=== PATIENT | female | born 1935 | race Caucasian/White ===

== ENCOUNTER 2017-09-26 14:10 | Inpatient (IN) | payer OTHER ==
[~2017-09-26] VITALS: Ht 170.2 cm; Wt 106.0 kg
[~2017-09-26 14:10] MED LIST: ACCUPRIL20 MG PO; ADULT LOW DOSE81 M1 PO; ALLOPURINOL100 MG PO; ALLOPURINOL300 MG PO; AMARYL2 MG PO; AMARYL4 MG PO; ASACOL400 MG PO; ASPIR 8181 M1 PO; ASPIR-LOW81 MG PO; ATIVAN0.5 MG PO; ATORVASTATIN CA80 MG PO; B COMPLEX1 EAC2 PO; B-COMPLEX-VITA1 EACH PO; BACTRIM,SEPT1 TABLET PO; BYSTOLIC10 MG PO; BYSTOLIC20 MG PO; CATAPRES0.2 MG PO; CELEBREX; CELEBREX100 MG PO; CHLORZOXAZONE500 MG PO; CIPROFLOXACIN500 M1 PO; CITRUCEL500 MG PO; CLONIDINE HCL0.2 MG PO; COLCHICINE0.6 M1 PO; COLCRYS0.6 MG NG; COLCRYS0.6 MG PO; CORMAX50 M1 TP; COUMADIN2.5 MG PO; CYCLOBENZAPRINE10 MG PO; EFFEXOR75 MG PO; FISH OIL 1,2001 EAC1 PO; FLUCONAZOLE100 M2 PO; FUROSEMIDE20 MG NG; FUROSEMIDE40 MG PO; JANUVIA100 MG PO; LANTUS 10100 UNITS/ SC; LANTUS 3 M100 UNITS1 SC; LASIX20 MG PO; LASIX40 MG PO; LOSARTAN POTASS50 MG G-TUBE; LYRICA50 MG PO; Lasix PO; NEXIUM40 MG PO; NIFEDICAL XL30 MG PO; NIFEDIPINE ER30 MG PO; NORVASC5 MG PO; NOVOLOG PE100 UNITS/ SC; PERCOCET 5/31 TABLET PO; PRILOSEC OTC20 MG PO; PRILOSEC20 MG PO; PRILOSEC20.6 MG PO; PROBIOTIC1 EAC2 PO; QUINAPRIL HCL20 MG PO; RESTASIS 01 DROP/0.4 BOTH EYES; RESTORIL30 MG PO; SIMVASTATIN80 M1 PO; SULFASALAZINE500 MG PO; TAGAMET400 MG PO; TEKTURNA300 MG PO; TEMAZEPAM30 MG PO; TRAMADOL HCL50 MG PO; ULTRAM ER 100100 MG PO; VENLAFAXINE HCL75 M3 PO; VESICARE5 MG PO; VITAMIN D-32000 UNIT PO; VITAMIN D31000 UNIT PO; VITAMIN D32000 UNI1 PO; ZESTRIL20 MG PO; ZOCOR80 MG PO; ZYLOPRIM150 MG PO; ZYLOPRIM300 MG PO; Zyloprim PO
[2017-09-26 15:14] LABS: BASOPHIL (%) 0.5 % (0-1); EOSINOPHIL (%) 2.1 % (0-5); EOSINOPHIL COUNT 0.2 K/uL (0-0.3); HEMATOCRIT 36.5 % (36.0-46.0); HEMOGLOBIN 11.8 G/DL (11.9-15.5); IMMATURE GRANULOCYTE (%) 0.4 % (0.0-0.7); LYMPHOCYTE (%) 31.5 % (15-42); LYMPHOCYTE COUNT 2.4 K/uL (1.0-2.8); MCH 31.5 PG (29.0-34.0); MCHC 32.3 G/DL (30.0-36.0); MCV 97.3 FL (83-99); MONOCYTE (%) 13.5 % (3-12); NEUTROPHIL COUNT 3.9 K/uL (1.8-6.4); PLATELET COUNT 299 K/uL (156-360); RBC DIS.WIDTH-SD 53.5 % (39-53); RED BLOOD COUNT 3.75 M/uL (3.80-5.20); WHITE BLOOD COUNT 7.5 K/uL (4.1-10.2)
[2017-09-26 15:24] LABS: CHLORIDE 105 mEq/L (99-109); POTASSIUM 4.3 mEq/L (3.7-5.4); SODIUM 139 mEq/L (136-147)
[2017-09-26 15:25] LABS: INTER. NORMALIZED RATIO 1.1
[2017-09-26 15:26] LABS: GLUCOSE 104 mg/dL (70-99)
[2017-09-26 15:27] LABS: PTT 28.8 SEC (25-37)
[2017-09-26 15:30] LABS: CREATININE 1.1 mg/dL (0.6-1.3); GFR ESTIMATE (CALCULATED) 51 mL/min/
[2017-09-26 15:31] LABS: UREA NITROGEN (BUN) 27 mg/dL (9-23)
[2017-09-26 15:34] LABS: TROP-I INTERPRETATION NEGATIVE; TROPONIN-I < 0.01 ng/mL (0.0-0.30)
[2017-09-26] MEDS ORDERED: ASPIR 8181 M1 PO (17:41)
[2017-09-26] MEDS ORDERED: TRESIBA FL100 UNIT/1 SC (17:42)
[2017-09-26] MEDS ORDERED: COZAAR50 MG PO (17:43)
[2017-09-26] MEDS ORDERED: TYLENOL EXTRA500 MG PO (17:43)
[2017-09-26 18:17] LABS: MAGNESIUM 1.7 mg/dL (1.3-2.7)
[2017-09-26 19:22] LABS: TROP-I INTERPRETATION NEGATIVE; TROPONIN-I < 0.01 ng/mL (0.0-0.30)
[2017-09-26 19:47] VITALS: BP 191/74
[2017-09-26 21:19] LABS: APPEARANCE CLEAR ((CLEAR)); BILIRUBIN NEGATIVE; BLOOD NEGATIVE; COLOR STRAW ((YELLOW)); GLUCOSE (STRIP) NEGATIVE; KETONES NEGATIVE; LEUKOCYTES NEGATIVE; NITRITE NEGATIVE; PROTEIN (STRIP) NEGATIVE; SPECIFIC GRAVITY 1.004 (1.000-1.030); UROBILINOGEN 0.2 MG/DL (0.2-1.0)
[2017-09-26 22:47] VITALS: BP 192/76
[2017-09-26 23:45] LABS: TROP-I INTERPRETATION NEGATIVE; TROPONIN-I < 0.01 ng/mL (0.0-0.30)
[2017-09-27 03:21] VITALS: BP 149/73
[2017-09-27 05:05] LABS: HEMATOCRIT 35.8 % (36.0-46.0); HEMOGLOBIN 11.6 G/DL (11.9-15.5); MCH 31.2 PG (29.0-34.0); MCHC 32.4 G/DL (30.0-36.0); MCV 96.2 FL (83-99); PLATELET COUNT 333 K/uL (156-360); RBC DIS.WIDTH-SD 53.4 % (39-53); RED BLOOD COUNT 3.72 M/uL (3.80-5.20); WHITE BLOOD COUNT 10.5 K/uL (4.1-10.2)
[2017-09-27 05:28] LABS: CHLORIDE 103 MEQ/L (99-109); CREATININE 1.1 MG/DL (0.6-1.3); GFR ESTIMATE (CALCULATED) 51 mL/min/; HDL CHOLESTEROL 28 MG/DL (Desirable>=50); LDL CHOLESTEROL 60 mg/dL (Desirable<100); NON-HDL CHOLESTEROL 85 mg/dL (Desirable<160); SODIUM 140 MEQ/L (136-147); TOTAL CHOLESTEROL 113 mg/dL (Desirable<200); TRIGLYCERIDES 123 MG/DL (Normal: <150); UREA NITROGEN (BUN) 28 mg/dL (9-23)
[2017-09-27 05:29] LABS: GLUCOSE 58 mg/dL (70-99)
[2017-09-27 06:50] LABS: Estimated Average Glucose 143 mg/dL (70-123); HEMOGLOBIN A1c (GLYCOHEMOGLOB) 6.6 % HGB (Below 5.7)
[2017-09-27 07:11] VITALS: BP 160/67
[2017-09-27 08:33] LABS: THYROTROPIN (TSH) 3.4 MIU/L (0.4-5.5)
[2017-09-27 11:42] VITALS: BP 153/67
[2017-09-27 15:29] VITALS: BP 164/67
[2017-09-27 19:34] VITALS: BP 171/75
[2017-09-28 00:02] VITALS: BP 162/72
[2017-09-28 03:15] VITALS: BP 164/71
[2017-09-28 05:59] LABS: CHLORIDE 102 MEQ/L (99-109); CREATININE 1.2 MG/DL (0.6-1.3); GFR ESTIMATE (CALCULATED) 46 mL/min/; POTASSIUM 4.5 MEQ/L (3.7-5.4); SODIUM 140 MEQ/L (136-147); UREA NITROGEN (BUN) 31 mg/dL (9-23)
[2017-09-28 06:00] LABS: GLUCOSE 90 mg/dL (70-99)
[2017-09-28 08:30] VITALS: BP 120/92
[2017-09-28] MEDS ORDERED: LASIX40 MG PO (11:59)
[2017-09-28 12:34] VITALS: BP 157/69
== END 2017-09-28 14:36 | disposition home or self-care (01) | DRG 293 ==
LOC: EME 14:10 → 4EAST 17:23 → EDOF 17:23 → ENRESERV 17:26 → 4EAST 19:27 → ENPENDDIS 09-28 → 4EAST 09-28 14:36
PROVIDERS: Emergency Medicine; Family Medicine; Hospitalist
DX: I11.0 Hypertensive heart disease with heart failure (principal); I50.9 Heart failure, unspecified; I35.0 Nonrheumatic aortic (valve) stenosis; E11.22 Type 2 diabetes mellitus with diabetic chronic kidney disease; E11.649 Type 2 diabetes mellitus with hypoglycemia without coma; E11.43 Type 2 diabetes mellitus with diabetic autonomic (poly)neuropathy; K31.84 Gastroparesis; E78.5 Hyperlipidemia, unspecified; M10.9 Gout, unspecified; D64.9 Anemia, unspecified; N32.89 Other specified disorders of bladder; Z96.643 Presence of artificial hip joint, bilateral; E66.9 Obesity, unspecified; Z68.36 Body mass index [BMI] 36.0-36.9, adult; Z79.4 Long term (current) use of insulin; Z85.820 Personal history of malignant melanoma of skin; Z23 Encounter for immunization
CPT/HCPCS: 71020; 80048; 80061; 81003; 82948; 83036; 83735; 83880; 84443; 84484; 85025; 85027; 85610; 85730; 90686; 93005; 93306; 99281; 99285; J0360; J1650; J1815; J1940

== ENCOUNTER 2018-05-22 09:00 | Inpatient (IN) | payer OTHER ==
[~2018-05-22] VITALS: Ht 170.2 cm; Wt 105.7 kg
[~2018-05-22 09:00] MED LIST changes: +COZAAR50 MG PO; +TRESIBA FL100 UNIT/1 SC; +TYLENOL EXTRA500 MG PO
[2018-05-22 10:11] LABS: BASOPHIL (%) 0.6 % (0-1); BASOPHIL COUNT 0.1 K/uL (0-0.1); EOSINOPHIL (%) 2.1 % (0-5); EOSINOPHIL COUNT 0.3 K/uL (0-0.3); HEMATOCRIT 37.9 % (36.0-46.0); HEMOGLOBIN 12.7 G/DL (11.9-15.5); IMMATURE GRANULOCYTE (%) 0.6 % (0.0-0.7); LYMPHOCYTE (%) 26.3 % (15-42); LYMPHOCYTE COUNT 3.3 K/uL (1.0-2.8); MCH 32.2 PG (29.0-34.0); MCHC 33.5 G/DL (30.0-36.0); MCV 96.2 FL (83-99); MONOCYTE (%) 11.1 % (3-12); MONOCYTE COUNT 1.4 K/uL (0-0.8); NEUTROPHIL (%) 59.3 % (45-76); NEUTROPHIL COUNT 7.5 K/uL (1.8-6.4); PLATELET COUNT 371 K/uL (156-360); RBC DIS.WIDTH-CV 14.6 % (11.8-14.6); RBC DIS.WIDTH-SD 51.6 % (39-53); RED BLOOD COUNT 3.94 M/uL (3.80-5.20); WHITE BLOOD COUNT 12.6 K/uL (4.1-10.2)
[2018-05-22 10:22] LABS: CHLORIDE 109 mEq/L (99-109); SODIUM 141 mEq/L (136-147)
[2018-05-22 10:23] LABS: PTT 26.7 SEC (25-37)
[2018-05-22 10:24] LABS: GLUCOSE 98 mg/dL (70-99)
[2018-05-22 10:28] LABS: GFR ESTIMATE (CALCULATED) 57 mL/min/; UREA NITROGEN (BUN) 22 mg/dL (9-23)
[2018-05-22 12:20] LABS: APPEARANCE CLEAR ((CLEAR)); BILIRUBIN NEGATIVE; BLOOD NEGATIVE; COLOR YELLOW ((YELLOW)); GLUCOSE (STRIP) NEGATIVE; KETONES NEGATIVE; LEUKOCYTES SMALL; NITRITE POSITIVE; PROTEIN (STRIP) 100; SPECIFIC GRAVITY 1.016 (1.000-1.030); UROBILINOGEN 0.2 MG/DL (0.2-1.0)
[2018-05-22 12:46] LABS: BACTERIA RARE /HPF; EPITHELIAL CELLS RARE /HPF; MUCUS NONE SEEN /LPF; RED BLOOD CELLS 0-5 /HPF (0-5); UCUL ADDED? YES; WHITE BLOOD CELLS 40-50 /HPF (0-5)
[2018-05-22 14:10] LABS: HEMOGLOBIN A1c (GLYCOHEMOGLOB) 6.2 % (Below 5.7)
[2018-05-22 17:36] VITALS: BP 151/73
[2018-05-22 19:58] VITALS: BP 175/71
[2018-05-22 23:53] VITALS: BP 128/61
[2018-05-23 04:38] VITALS: BP 167/70
[2018-05-23 06:43] LABS: HEMATOCRIT 32.3 % (36.0-46.0); MCH 32.1 PG (29.0-34.0); MCHC 32.5 G/DL (30.0-36.0); MCV 98.8 FL (83-99); NRBC (%) 0.3 /100 WBC (0-0); PLATELET COUNT 390 K/uL (156-360); RBC DIS.WIDTH-CV 15.2 % (11.8-14.6); RBC DIS.WIDTH-SD 55.1 % (39-53); RED BLOOD COUNT 3.27 M/uL (3.80-5.20); WHITE BLOOD COUNT 9.8 K/uL (4.1-10.2)
[2018-05-23 06:54] LABS: HEMOGLOBIN 10.5 G/DL (11.9-15.5)
[2018-05-23 07:06] LABS: CHLORIDE 104 MEQ/L (99-109); CREATININE 1.4 MG/DL (0.6-1.3); GFR ESTIMATE (CALCULATED) 38 mL/min/; GLUCOSE 141 mg/dL (70-99); SODIUM 141 MEQ/L (136-147); UREA NITROGEN (BUN) 28 mg/dL (9-23)
[2018-05-23 07:07] LABS: POTASSIUM 5.2 MEQ/L (3.7-5.4)
[2018-05-23 07:22] VITALS: BP 137/64
[2018-05-23 11:30] VITALS: BP 138/63
[2018-05-23 19:53] VITALS: BP 139/66
[2018-05-23 23:43] VITALS: BP 147/67
[2018-05-24 05:35] VITALS: BP 131/76
[2018-05-24 05:57] LABS: HEMATOCRIT 33.2 % (36.0-46.0); MCV 94.9 FL (83-99)
[2018-05-24 06:20] LABS: CHLORIDE 106 MEQ/L (99-109); CREATININE 1.8 MG/DL (0.6-1.3); GFR ESTIMATE (CALCULATED) 29 mL/min/; GLUCOSE 197 mg/dL (70-99); POTASSIUM 4.9 MEQ/L (3.7-5.4); SODIUM 139 MEQ/L (136-147); UREA NITROGEN (BUN) 32 mg/dL (9-23)
[2018-05-24 07:33] VITALS: BP 158/68
[2018-05-24 11:35] VITALS: BP 140/60
[2018-05-24 15:44] VITALS: BP 130/56
[2018-05-24 19:32] VITALS: BP 180/76
[2018-05-24 23:54] VITALS: BP 154/68
[2018-05-25 04:04] VITALS: BP 138/64
[2018-05-25 07:01] LABS: CHLORIDE 110 MEQ/L (99-109); CREATININE 1.6 MG/DL (0.6-1.3); GFR ESTIMATE (CALCULATED) 33 mL/min/; GLUCOSE 224 mg/dL (70-99); POTASSIUM 4.6 MEQ/L (3.7-5.4); SODIUM 138 MEQ/L (136-147); UREA NITROGEN (BUN) 39 mg/dL (9-23)
[2018-05-25 07:53] VITALS: BP 137/78
[2018-05-25] MEDS ORDERED: KEFLEX500 MG PO (11:07)
[2018-05-25 12:04] VITALS: BP 143/91
[2018-05-25 15:12] VITALS: BP 149/66
[2018-05-25 19:58] VITALS: BP 144/57
[2018-05-25 23:36] VITALS: BP 142/51
[2018-05-26 03:09] VITALS: BP 162/63
[2018-05-26 06:38] LABS: CHLORIDE 109 MEQ/L (99-109); CREATININE 1.3 MG/DL (0.6-1.3); GFR ESTIMATE (CALCULATED) 42 mL/min/; GLUCOSE 158 mg/dL (70-99); POTASSIUM 4.6 MEQ/L (3.7-5.4); SODIUM 140 MEQ/L (136-147); UREA NITROGEN (BUN) 36 mg/dL (9-23)
[2018-05-26 07:51] VITALS: BP 152/69
[2018-05-26 11:40] VITALS: BP 167/74
[2018-05-26 16:22] VITALS: BP 166/70
[2018-05-26 20:12] VITALS: BP 181/73
[2018-05-26 23:56] VITALS: BP 101/52
[2018-05-27 06:13] VITALS: BP 137/98
[2018-05-27 06:29] LABS: CHLORIDE 110 MEQ/L (99-109); CREATININE 1.1 MG/DL (0.6-1.3); GFR ESTIMATE (CALCULATED) 51 mL/min/; GLUCOSE 167 mg/dL (70-99); POTASSIUM 4.6 MEQ/L (3.7-5.4); SODIUM 139 MEQ/L (136-147); UREA NITROGEN (BUN) 28 mg/dL (9-23)
[2018-05-27 07:57] VITALS: BP 163/67
[2018-05-27 12:06] VITALS: BP 115/74
[2018-05-27 15:33] VITALS: BP 119/72
[2018-05-27 23:47] VITALS: BP 192/80
[2018-05-28 07:10] LABS: HEMATOCRIT 27.9 % (36.0-46.0); HEMOGLOBIN 9.2 G/DL (11.9-15.5); MCH 32.4 PG (29.0-34.0); MCV 98.2 FL (83-99); NRBC (%) 0.4 /100 WBC (0-0); RBC DIS.WIDTH-CV 15.8 % (11.8-14.6); RBC DIS.WIDTH-SD 55.7 % (39-53); RED BLOOD COUNT 2.84 M/uL (3.80-5.20); WHITE BLOOD COUNT 11.3 K/uL (4.1-10.2)
[2018-05-28 07:38] LABS: PLATELET COUNT UNABLE TO REPORT K/uL (156-360)
[2018-05-28 07:58] VITALS: BP 139/65
[2018-05-28 08:11] LABS: CHLORIDE 109 MEQ/L (99-109); GFR ESTIMATE (CALCULATED) 57 mL/min/; GLUCOSE 152 mg/dL (70-99); MAGNESIUM 1.9 mg/dl (1.3-2.7); POTASSIUM 4.6 MEQ/L (3.7-5.4); SODIUM 140 MEQ/L (136-147); UREA NITROGEN (BUN) 24 mg/dL (9-23)
[2018-05-28 11:35] VITALS: BP 170/72
[2018-05-28 15:58] VITALS: BP 182/74
[2018-05-28 19:31] VITALS: BP 160/88
[2018-05-28 23:10] VITALS: BP 163/76
[2018-05-29 05:24] VITALS: BP 160/74
[2018-05-29 06:20] LABS: BASOPHIL (%) 0.6 % (0-1); BASOPHIL COUNT 0.1 K/uL (0-0.1); EOSINOPHIL (%) 1.7 % (0-5); EOSINOPHIL COUNT 0.2 K/uL (0-0.3); HEMATOCRIT 27.9 % (36.0-46.0); HEMOGLOBIN 9.1 G/DL (11.9-15.5); IMMATURE GRANULOCYTE (%) 4.8 % (0.0-0.7); LYMPHOCYTE (%) 19.2 % (15-42); LYMPHOCYTE COUNT 2.4 K/uL (1.0-2.8); MCH 32.3 PG (29.0-34.0); MCHC 32.6 G/DL (30.0-36.0); MCV 98.9 FL (83-99); MONOCYTE (%) 17.7 % (3-12); MONOCYTE COUNT 2.2 K/uL (0-0.8); PLATELET COUNT 318 K/uL (156-360); RBC DIS.WIDTH-CV 15.9 % (11.8-14.6); RBC DIS.WIDTH-SD 55.8 % (39-53); RED BLOOD COUNT 2.82 M/uL (3.80-5.20); WHITE BLOOD COUNT 12.4 K/uL (4.1-10.2)
[2018-05-29 06:48] LABS: CHLORIDE 109 MEQ/L (99-109); GFR ESTIMATE (CALCULATED) 57 mL/min/; GLUCOSE 117 mg/dL (70-99); POTASSIUM 4.4 MEQ/L (3.7-5.4); SODIUM 139 MEQ/L (136-147); UREA NITROGEN (BUN) 22 mg/dL (9-23)
[2018-05-29 07:30] VITALS: BP 177/74
[2018-05-29 11:03] VITALS: BP 178/81
[2018-05-29 16:06] VITALS: BP 174/60
[2018-05-30 00:03] VITALS: BP 158/82
[2018-05-30 04:57] VITALS: BP 157/67
[2018-05-30 08:33] VITALS: BP 110/69
[2018-05-30 09:34] LABS: HEMATOCRIT 27.3 % (36.0-46.0); MCH 32.3 PG (29.0-34.0); MCV 97.8 FL (83-99); NRBC (%) 1.6 /100 WBC (0-0); PLATELET COUNT 380 K/uL (156-360); RBC DIS.WIDTH-SD 56.1 % (39-53); RED BLOOD COUNT 2.79 M/uL (3.80-5.20); WHITE BLOOD COUNT 10.7 K/uL (4.1-10.2)
[2018-05-30 10:00] LABS: CHLORIDE 105 MEQ/L (99-109); CREATININE 0.9 MG/DL (0.6-1.3); GFR ESTIMATE (CALCULATED) > 59 mL/min/; GLUCOSE 128 mg/dL (70-99); POTASSIUM 4.3 MEQ/L (3.7-5.4); SODIUM 135 MEQ/L (136-147); UREA NITROGEN (BUN) 17 mg/dL (9-23)
[2018-05-30 11:14] VITALS: BP 171/61
[2018-05-30] MEDS ORDERED: VALACYCLOVIR500 MG PO (11:19)
[2018-05-30] MEDS ORDERED: BACTRIM,SEPTRA S1 ML PO (11:20)
[2018-05-30] MEDS ORDERED: LOVENOX30 MG/0.3 SC (11:22)
[2018-05-30 15:39] VITALS: BP 127/72
== END 2018-05-30 15:42 | DRG 481 ==
LOC: EME 09:00 → ENRESERV 11:41 → 3EAST 11:42 → EDOF 11:42 → ENRESERV 13:51 → 3EAST 16:50
PROVIDERS: Emergency Medicine; Hospitalist; Internal Medicine; Orthopaedic Surgery
PROC: 30233N1 Transfusion of Nonautologous Red Blood Cells into Peripheral Vein, Percutaneous Approach (ICD-10-PCS; principal; 2018-05-23)
PROC: 0QS604Z Reposition Right Upper Femur with Internal Fixation Device, Open Approach (ICD-10-PCS; principal; 2018-05-23)
PROC: 0DB48ZX Excision of Esophagogastric Junction, Via Natural or Artificial Opening Endoscopic, Diagnostic (ICD-10-PCS; 2018-05-28)
DX: M97.9XXA Periprosthetic fracture around unspecified internal prosthetic joint, initial encounter (principal); E03.9 Hypothyroidism, unspecified; E11.22 Type 2 diabetes mellitus with diabetic chronic kidney disease; E66.9 Obesity, unspecified; E78.5 Hyperlipidemia, unspecified; K56.7 Ileus, unspecified; I35.0 Nonrheumatic aortic (valve) stenosis; I50.32 Chronic diastolic (congestive) heart failure; W18.30XA Fall on same level, unspecified, initial encounter; N18.3 Chronic kidney disease, stage 3 (moderate); F40.240 Claustrophobia; I13.0 Hypertensive heart and chronic kidney disease with heart failure and stage 1 through stage 4 chronic kidney disease, or unspecified chronic kidney disease; I42.9 Cardiomyopathy, unspecified; Z53.20 Procedure and treatment not carried out because of patient's decision for unspecified reasons; I25.10 Atherosclerotic heart disease of native coronary artery without angina pectoris; F03.90 Unspecified dementia, unspecified severity, without behavioral disturbance, psychotic disturbance, mood disturbance, and anxiety; M81.0 Age-related osteoporosis without current pathological fracture; K21.0 Gastro-esophageal reflux disease with esophagitis; E11.43 Type 2 diabetes mellitus with diabetic autonomic (poly)neuropathy; N17.9 Acute kidney failure, unspecified; E11.42 Type 2 diabetes mellitus with diabetic polyneuropathy; N39.0 Urinary tract infection, site not specified; Z96.643 Presence of artificial hip joint, bilateral; R13.10 Dysphagia, unspecified; B37.81 Candidal esophagitis; Z79.82 Long term (current) use of aspirin; Z79.4 Long term (current) use of insulin; Z68.38 Body mass index [BMI] 38.0-38.9, adult; Z87.19 Personal history of other diseases of the digestive system; Z85.820 Personal history of malignant melanoma of skin; Z79.899 Other long term (current) drug therapy; B00.89 Other herpesviral infection; E87.2 Acidosis; B96.20 Unspecified Escherichia coli [E. coli] as the cause of diseases classified elsewhere
CPT/HCPCS: 70450; 71045; 73502; 73552; 74018; 76000; 76770; 80048; 81003; 82570; 82948; 83036; 83605; 83735; 84156; 85014; 85018; 85025; 85027; 85610; 85730; 86850; 86900; 86901; 86920; 87077; 87086; 87186; 88305; 88312; 89190; 93005; 93306; 94799; 97530 GP; 99281; 99285; C1713; C9113; J0131; J1170; J1644; J1815; J2250; J2405; J2765; J3010; J3370; J7042; J7050; P9016; S0028